=== PATIENT | male | born 1950 | race Caucasian/White ===

== ENCOUNTER 2016-11-21 08:02 | Inpatient (IN) | payer BC, OTHER ==
[~2016-11-21] VITALS: Ht 185.4 cm; Wt 85.2 kg
[2016-11-21] VITALS (20 sets, daily range): BP systolic 96–113; BP diastolic 50–62; PULSE 58–82; RESP 16–47; Ht 185.4 cm; Wt 85.2 kg
[~2016-11-21 08:02] MED LIST: BUPIVACAINE 0.5% (SDV) 30 ML, morphine SULFATE (PF) 8 MG, EPINEPHrine 0.3 MG, KETOROLAC... IRR SCH; CEFAZOLIN 2 GM/50 ML (PMX) 50 ML IVPB SCH; DEXAMETHASONE 1 MG TAB PO SCH; EPHEDrine SULFATE 50 MG/5 ML SYG ONE; GABAPENTIN 300 MG CAP PO SCH; SOD CHLORIDE 0.9% 100 ML, TRANEXAMIC ACID 3,000 MG IRR SCH; TRANEXAMIC ACID 1,000 MG in SOD CHLORIDE 0.9% 100 ML IVPB SCH; traMADol 50 MG TAB PO SCH
--- NOTE | 2016-11-21 08:54 | HPN ---
Date/Time of Note Date/Time of Note DATE: 11/21/16 TIME: 08:54 Interval H&P Admission Note Pt. seen H&P reviewed: No system changes KAROL OLMOS MD Nov 21, 2016 08:54
[2016-11-21] MEDS ORDERED: DOXY100T20 PO (08:59)
[2016-11-21] MEDS ORDERED: THROMBIN 5000 UNIT VIAL ONE (11:50)
[2016-11-21] MEDS ORDERED: CA CHLORIDE 10% 10 ML SYRINGE ONE (11:50)
[2016-11-21] MEDS ORDERED: MIDAZOLAM 1 MG/ML 2 ML INJ ONE (11:57)
[2016-11-21] MEDS ORDERED: morphine SULFATE/PF (10 MG/10 ML) INJ ONE (11:58)
[2016-11-21] MEDS ORDERED: CEFAZOLIN 1 GM INJ ONE (11:58)
[2016-11-21] MEDS ORDERED: METOCLOPRAMIDE 10 MG INJ ONE (11:58)
[2016-11-21] MEDS ORDERED: FENTAnyl 50 MCG/ML VIAL ONE (11:58)
[2016-11-21] MEDS ORDERED: PROPOFOL 20 ML ONE (11:58)
[2016-11-21] MEDS ORDERED: DEXAMETHASONE 4 MG/ML 1 ML INJ ONE (12:21)
[2016-11-21] MEDS ORDERED: SUCCINYLCHOLINE CHLORIDE 100 MG/5 ML SYG IV ONE (12:21)
[2016-11-21] MEDS ORDERED: POLYMYXIN/BACITRACIN 1L IRRIG ONE (12:26)
[2016-11-21] MEDS ORDERED: EPHEDrine SULFATE 50 MG/5 ML SYG IV PRN (13:00)
[2016-11-21] MEDS ORDERED: MEPERIDINE 25 MG INJ IV PRN (13:00)
[2016-11-21] MEDS ORDERED: DIPHENHYDRAMINE 50 MG INJ IV PRN ×2 (13:00→14:30)
[2016-11-21] MEDS ORDERED: METOCLOPRAMIDE 10 MG INJ IV PRN (13:00)
[2016-11-21] MEDS ORDERED: ONDANSETRON 4 MG INJ IV PRN (13:00)
[2016-11-21] MEDS ORDERED: HYDROmorphONE (0.2 MG/ML) 10ML SYG IV PRN ×2 (13:00)
--- NOTE | 2016-11-21 14:20 | PDOCDIS ---
Discharge Instructions DIAGNOSIS Discharge Diagnosis Left Hip primary arthritis CONDITION Patient Condition: Good HOME CARE INSTRUCTIONS: Diet Instructions: Regular ACTIVITY: Activity Restrictions: Slowly Increase Activity Keep Limb Elevated FOLLOW UP/APPOINTMENTS Follow-up Plan Two weeks SCHOOL/WORK RELEASE May return to School/Work with: With Restrictions School/Work Release Comment: No hip extension for six weeks. KAROL OLMOS MD Nov 21, 2016 14:20
--- NOTE | 2016-11-21 14:20 | OPR ---
Date/Time of Note Date/Time of Note DATE: 11/21/16 TIME: 14:14 Operative Report Procedure Date: Nov 21, 2016 Preoperative Diagnosis Left Hip primary arthritis Postoperative Diagnosis Left Hip primary arthritis Operation Performed Left total hip arthroplasty Anesthesia Type: general Procedure Description Surgeon: KAROL OLMOS MD Vp Marketing: Jennifer BRANCH MD Anesthesia: general, spinal Estimated Blood Loss: 200 - 250 ml's Pt Condition Post Procedure: stable Disposition: PACU Procedure Description TAIL PULLER SURGEON: Gulshan Mitchell MD was asked to be present at my request as a result of the complexity associated with this procedure including positioning of the extremity, positioning of the instrumentation and protection of the neurovascular structures. In my opinion, the assistance offered by a surgical device sales representative is insufficient and Dr. Mitchell should be compensated for his time. PROCEDURE IN DETAIL: Following the administration of general endotracheal anesthesia supplemented with a spinal anesthetic, the patient was placed in the supine position. The bilateral lower extremities were then prepped and draped in the usual sterile fashion. A green energy marketing analyst radiograph was obtained for preliminary limb length and femoral size as well as acetabular size. A lateral incision was then made exposing the tensor fascia the fascia was incised the tensor was retracted laterally and the vessels were cauterized. The anterior capsule was then identified. A capsulectomy was then performed and the femoral head was then evaluated severe arthritic changes were noted. A femoral head cut was then made in the appropriate degree of version and inclination. The acetabulum was then exposed capsulectomy and labral ectomy were completed. The central portion was then entered and serially reamed up to the 57 mm size. A Depuy [place] cup which is 58 mm in size with a standard liner was then fit into position with solid fixation. A 35 mm screw was used for additional fixation. Attention was then directed to the femur, the femur was exposed and prepared. The canal was entered and serially reamed up to the 13 mm size. A 13 mm Depuy [place] stem, which was high-offset, was then inserted with solid fixation. A + 5 femoral head, which was ceramic was then inserted. The leg was taken through full range of motion with no evident instability. In addition, radiographs revealed excellent position with reproduction of the limb lengths within a millimeter. The wound was irrigated thoroughly. The wound was then closed in layers and a Prenio for the final cover. This was watertight. Estimated blood loss was procedure was 300 cc. Postoperative radiographs will be obtained in the recovery room. KAROL OLMOS MD Nov 21, 2016 14:19
--- NOTE | 2016-11-21 14:21 | RADRPT ---
PROCEDURE: Intraoperative imaging of the left hip with fluoroscopy. CLINICAL INDICATION: Left hip pain. Intraoperative. TECHNIQUE: 7 images of the left hip were obtained in the operating room with an image intensifier. No radiologist was in attendance. 0.4 minutes of fluoroscopy time was used. COMPARISON: No prior study is available for comparison. FINDINGS: Images demonstrate placement of a total left hip arthroplasty. IMPRESSION: 1. Satisfactory intraoperative imaging of the left hip. RPTAT: QQ .Terrance Head MD, MD Date Time Electronically viewed and signed by .Terrance Head MD, on 11/21/2016 14:21 .R/
[2016-11-21] MEDS ORDERED: ZOLPIDEM 5 MG TAB PO PRN (14:30)
[2016-11-21] MEDS ORDERED: morphine 4 MG/ML VIAL IV PRN (14:30)
[2016-11-21] MEDS ORDERED: BETHANECHOL 25 MG TAB PO PRN (14:30)
[2016-11-21] MEDS ORDERED: TRANEXAMIC ACID 1,000 MG in SOD CHLORIDE 0.9% 100 ML IV ONE (14:30)
[2016-11-21] MEDS ORDERED: OXYCODONE/ACETAMINOPHEN (5/325) TAB PO PRN (14:30)
[2016-11-21] MEDS ORDERED: morphine 2 MG INJ IV PRN (14:30)
[2016-11-21] MEDS ORDERED: MAGNESIUM HYDROXIDE 30ML CUP PO PRN (14:30)
[2016-11-21] MEDS ORDERED: ACETAMINOPHEN 500 MG TAB PO PRN (14:30)
[2016-11-21] MEDS: CEFAZOLIN 1 GM/50 ML (PMX) 50 ML IVPB SCH ×2 (14:46→23:10)
[2016-11-21 14:55] LABS: BASOPHILS % 0.3 % (0.0-2.0); EOSINOPHILS % 0.2 % (0.0-7.0); HEMOGLOBIN 11.5 g/dl (14.0-18.0); LYMPHOCYTES # 0.9 10^3/ul (0.8-2.9); LYMPHOCYTES % 13.2 % (15.0-51.0); MEAN CORPUSCULAR HGB CONC 33.8 g/dl (32.0-37.0); MEAN CORPUSCULAR VOLUME 91.6 fl (82.0-101.0); MEAN PLATELET VOLUME 9.4 fl (7.4-10.4); MONOCYTE # 0.1 10^3/ul (0.3-0.9); MONOCYTES % 1.5 % (0.0-11.0); NEUTROPHILS % 84.3 % (39.0-77.0); PLATELET COUNT 151 10^3/UL (140-415); RED BLOOD COUNT 3.71 10^6/ul (4.70-6.10); RED CELL DISTRIBUTION WIDTH 13.2 % (11.5-14.5); WHITE BLOOD COUNT 6.6 10^3/ul (4.8-10.8)
--- NOTE | 2016-11-21 16:05 | RADRPT ---
PROCEDURE: XR Pelvis. CLINICAL INDICATION: Status post left hip replacement. TECHNIQUE: Single AP view of the pelvis. COMPARISON: No prior studies are available for comparison. FINDINGS: Left hip replacement is identified. The prosthetic components are in appropriate position and align ment. Diffuse osteopenia is identified. The osseous structures appear intact. No destructive bony lesions are observed. Moderate to severe narrowing of the right hip is seen. Degenerative changes are noted in the lower lumbar spine. Frank catheter is identified over the lower pelvis. Soft tis hanna air over the left hip is procedural in nature. IMPRESSION: Left hip replacement. Prosthetic components are in appropriate position and alignment. Osteopenia. Moderate to severe osteoarthritis of the right hip. Degenerative changes in the lower lumbar spine. RPTAT: AA .Harshal Rader MD, Date Time Electronically viewed and signed by .Harshal Rader MD, on 11/21/2016 16:05 .P/
[2016-11-21] MEDS: ONDANSETRON 4 MG INJ IV PRN (18:17)
[2016-11-21] MEDS: LACTATED RINGER'S 1,000 ML IV SCH (18:17)
[2016-11-21] MEDS: DEXAMETHASONE 2 MG TAB PO SCH (18:17)
[2016-11-21] MEDS: SENNA/DOCUSATE NA (8.6MG/50MG) TAB PO SCH (21:00)
[2016-11-21] MEDS: GABAPENTIN 300 MG CAP PO SCH (21:00)
[2016-11-22] MEDS: ONDANSETRON 4 MG INJ IV PRN ×2 (00:35→08:24)
[2016-11-22] MEDS: KETOROLAC 15 MG INJ IV PRN ×2 (00:35→23:17)
[2016-11-22 01:28] VITALS: BP 111/59; RESP 20
[2016-11-22] MEDS: LACTATED RINGER'S 1,000 ML IV SCH ×3 (03:35→21:04)
[2016-11-22 05:42] LABS: BASOPHILS % 0.1 % (0.0-2.0); HEMATOCRIT 30.2 % (42.0-52.0); HEMOGLOBIN 10.4 g/dl (14.0-18.0); LYMPHOCYTES # 0.7 10^3/ul (0.8-2.9); LYMPHOCYTES % 8.6 % (15.0-51.0); MEAN CORPUSCULAR HEMOGLOBIN 31.5 pg (29.0-33.0); MEAN CORPUSCULAR HGB CONC 34.4 g/dl (32.0-37.0); MEAN CORPUSCULAR VOLUME 91.5 fl (82.0-101.0); MEAN PLATELET VOLUME 9.8 fl (7.4-10.4); MONOCYTE # 0.5 10^3/ul (0.3-0.9); MONOCYTES % 6.6 % (0.0-11.0); NEUTROPHILS % 84.5 % (39.0-77.0); PLATELET COUNT 156 10^3/UL (140-415); RED CELL DISTRIBUTION WIDTH 12.7 % (11.5-14.5)
[2016-11-22] MEDS: CEFAZOLIN 1 GM/50 ML (PMX) 50 ML IVPB SCH (06:28)
[2016-11-22] MEDS: DEXAMETHASONE 2 MG TAB PO SCH ×3 (06:28→12:39)
--- NOTE | 2016-11-22 06:40 | PN ---
Date/Time of Note Date/Time of Note DATE: 11/22/16 TIME: 06:39 24 hour Interval Summary Patient is awake and alert and very comfortable this morning. His nausea has gone away. Physical Exam Physical examination: His wound is clean and dry. He is neurologically intact. There are no signs of DVT. Vital Signs Date Time Temp Pulse Resp B/P Pulse Ox O2 Delivery O2 Flow Rate FiO2 11/22/16 01:28 97.8 57 20 111/59 95 11/21/16 18:00 Room Air 11/21/16 15:17 8.0 Intake and Output 11/21/16 11/21/16 11/22/16 15:00 23:00 07:00 Intake Total 1600 ml 50 ml 950 ml Output Total 600 ml Balance 1000 ml 50 ml 950 ml VTE Prophylaxis VTE Prophylaxis Intervention: anti-embolic stocking Lines/Catheters IV Catheter Type: Saline Lock Frank in Place: No Results Result Diagram: 11/22/16 0509 Results 24hrs Laboratory Tests Test 11/21/16 14:14 11/22/16 05:09 White Blood Count 6.6 8.0 # Red Blood Count 3.71 L 3.30 L Hemoglobin 11.5 L 10.4 L Hematocrit 34.0 L 30.2 L Mean Corpuscular Volume 91.6 91.5 Mean Corpuscular Hemoglobin 31.0 31.5 Mean Corpuscular Hemoglobin Concent 33.8 34.4 Red Cell Distribution Width 13.2 12.7 Platelet Count 151 156 Mean Platelet Volume 9.4 9.8 Neutrophils % 84.3 H 84.5 H Lymphocytes % 13.2 L 8.6 L Monocytes % 1.5 6.6 Eosinophils % 0.2 0.0 Basophils % 0.3 0.1 Nucleated Red Blood Cells % 0.0 0.0 Neutrophils # (Manual) 5.6 6.8 Lymphocytes # 0.9 0.7 L Monocytes # 0.1 L 0.5 Eosinophils # 0.0 0.0 Basophils # 0.0 0.0 Nucleated Red Blood Cells # 0.0 0.0 Assessment/Plan Assessment/Plan Assessment: Status post total hip replacement Plan: He will begin physical therapy this morning. He will be discharged once he is cleared by the PT department. Medications Medications Home Meds Reported Medications Doxycycline Hyclate* (Doxycycline Hyclate*) 100 Mg Tablet., 100 MG PO BID, TAB STARTED 11-19-16 FOR 5 DAYS 11/21/16 KAROL OLMOS MD Nov 22, 2016 06:40
--- NOTE | 2016-11-22 06:41 | DS ---
Date/Time of Note Date/Time of Note DATE: 11/22/16 TIME: 06:40 Discharge Summary Admission/Discharge Info Admit Date/Time Nov 21, 2016 at 08:02 Discharge Date/Time Discharge Diagnosis Left Hip primary arthritis Patient Condition: Good Procedures Left total hip replacement Hx of Present Illness Pain and stiffness in the left hip for many years Hospital Course Patient was admitted and underwent an uncomplicated procedure. Postoperative day #1 he was afebrile wound was clean and dry to be discharged followed up in the office in 2 weeks after cleared by physical therapy Home Meds Reported Medications Doxycycline Hyclate* (Doxycycline Hyclate*) 100 Mg Tablet., 100 MG PO BID, TAB STARTED 11-19-16 FOR 5 DAYS 11/21/16 Primary Care Provider Care Physician No Primary Pending Labs Laboratory Tests Test 11/21/16 14:14 11/22/16 05:09 White Blood Count 6.610^3/ul (4.8-10.8) 8.010^3/ul (4.8-10.8) Red Blood Count 3.7110^6/ul (4.70-6.10) 3.3010^6/ul (4.70-6.10) Hemoglobin 11.5g/dl (14.0-18.0) 10.4g/dl (14.0-18.0) Hematocrit 34.0% (42.0-52.0) 30.2% (42.0-52.0) Mean Corpuscular Volume 91.6fl (82.0-101.0) 91.5fl (82.0-101.0) Mean Corpuscular Hemoglobin 31.0pg (29.0-33.0) 31.5pg (29.0-33.0) Mean Corpuscular Hemoglobin Concent 33.8g/dl (32.0-37.0) 34.4g/dl (32.0-37.0) Red Cell Distribution Width 13.2% (11.5-14.5) 12.7% (11.5-14.5) Platelet Count 48568^3/UL (140-415) 23054^3/UL (140-415) Mean Platelet Volume 9.4fl (7.4-10.4) 9.8fl (7.4-10.4) Neutrophils % 84.3% (39.0-77.0) 84.5% (39.0-77.0) Lymphocytes % 13.2% (15.0-51.0) 8.6% (15.0-51.0) Monocytes % 1.5% (0.0-11.0) 6.6% (0.0-11.0) Eosinophils % 0.2% (0.0-7.0) 0.0% (0.0-7.0) Basophils % 0.3% (0.0-2.0) 0.1% (0.0-2.0) Nucleated Red Blood Cells % 0.0/100WBC (0.0-0.0) 0.0/100WBC (0.0-0.0) Neutrophils # (Manual) 5.610^3/ul (1.7-7.5) 6.810^3/ul (1.7-7.5) Lymphocytes # 0.910^3/ul (0.8-2.9) 0.710^3/ul (0.8-2.9) Monocytes # 0.110^3/ul (0.3-0.9) 0.510^3/ul (0.3-0.9) Eosinophils # 0.010^3/ul (0.0-0.5) 0.010^3/ul (0.0-0.5) Basophils # 0.010^3/ul (0.0-0.1) 0.010^3/ul (0.0-0.1) Nucleated Red Blood Cells # 0.010^3/ul (0.0-0.0) 0.010^3/ul (0.0-0.0) KAROL OLMOS MD Nov 22, 2016 06:41
[2016-11-22 07:27] VITALS: BP 99/56; RESP 18
[2016-11-22] MEDS: ASPIRIN 81 MG TAB PO SCH (08:24)
[2016-11-22] MEDS: SENNA/DOCUSATE NA (8.6MG/50MG) TAB PO SCH ×2 (08:24→20:20)
[2016-11-22] MEDS: OXYCODONE/ACETAMINOPHEN (5/325) TAB PO PRN ×3 (08:25→20:19)
--- NOTE | 2016-11-22 09:14 | PN ---
Date/Time of Note Date/Time of Note DATE: 11/22/16 TIME: 09:12 Assessment/Plan VTE Prophylaxis VTE Prophylaxis Intervention: ambulation Lines/Catheters IV Catheter Type (from Nrsg): Saline Lock Urinary Cath still in place: No Subjective 24 Hr Interval Summary Free Text/Dictation Anesthesia Note: A 65 year old male s/p left hip arthroplasty under GA spinal duramorph is doing well, no ain, N/V itching, headache, back is clean . care pe surgery Exam/Review of Systems Vital Signs Vitals Vital Signs Date Time Temp Pulse Resp B/P Pulse Ox O2 Delivery O2 Flow Rate FiO2 11/22/16 07:27 97.9 56 18 99/56 97 11/21/16 18:00 Room Air 11/21/16 15:17 8.0 Intake and Output 11/21/16 11/21/16 11/22/16 15:00 23:00 07:00 Intake Total 1600 ml 50 ml 950 ml Output Total 600 ml Balance 1000 ml 50 ml 950 ml Results Result Diagram: 11/22/16 0509 Results 24 hrs Laboratory Tests Test 11/21/16 14:14 11/22/16 05:09 White Blood Count 6.6 8.0 # Red Blood Count 3.71 L 3.30 L Hemoglobin 11.5 L 10.4 L Hematocrit 34.0 L 30.2 L Mean Corpuscular Volume 91.6 91.5 Mean Corpuscular Hemoglobin 31.0 31.5 Mean Corpuscular Hemoglobin Concent 33.8 34.4 Red Cell Distribution Width 13.2 12.7 Platelet Count 151 156 Mean Platelet Volume 9.4 9.8 Neutrophils % 84.3 H 84.5 H Lymphocytes % 13.2 L 8.6 L Monocytes % 1.5 6.6 Eosinophils % 0.2 0.0 Basophils % 0.3 0.1 Nucleated Red Blood Cells % 0.0 0.0 Neutrophils # (Manual) 5.6 6.8 Lymphocytes # 0.9 0.7 L Monocytes # 0.1 L 0.5 Eosinophils # 0.0 0.0 Basophils # 0.0 0.0 Nucleated Red Blood Cells # 0.0 0.0 Medications Medications Current Medications Senna/Docusate Sodium (Senokot-S) 1 tab BID PO Last administered on 11/22/16t 08 :24; Admin Dose 1 TAB; Start 11/21/16 at 21:00 Simethicone (Mylicon) 80 mg TID PRN PO DISTENSION/GAS/BLOATING; Start 11/21/16 at 14:30 Magnesium Hydroxide (Milk Of Mag) 30 ml BID PRN PO CONSTIPATION; Start at 14:30 Acetaminophen (Tylenol Tab) 1,000 mg Q4H PRN PO TEMP GREATER THAN 100.4F; Start 11/21/16 at 14:30 Dexamethasone (Decadron) 2 mg Q6 PO Last administered on 11/22/16 06:28; Admin Dose 2 MG; Start 11/21/16 at 18:00; Stop 11/22/16 at 12:01 Gabapentin (Neurontin) 300 mg HS PO ; Start 11/21/16 at 21:00 Oxycodone/ Acetaminophen (Percocet (5/ 325)) 1 tab Q4H PRN PO PAIN LEVEL 1-5; Start 11/21/16 at 14:30 Oxycodone/ Acetaminophen (Percocet (5/ 325)) 2 tab Q4H PRN PO PAIN LEVEL 6-10 Last administered on 11/22/16 08:25; Admin Dose 2 TAB; Start 11/21/16 at 14:30 Morphine Sulfate (morphine) 2 mg Q2H PRN IV PAIN LEVEL 1-5 Last administered on 11/21/16 14:55; Admin Dose 2 MG; Start 11/21/16 at 14:30 Morphine Sulfate (morphine) 4 mg Q4H PRN IV PAIN LEVEL 6-10; Start 11/21/16 at 14:30 Ketorolac Tromethamine (Toradol) 15 mg Q6H PRN IV PAIN Last administered on 11/22 00:35; Admin Dose 15 MG; Start 11/21/16 at 14:30; Stop 11/24/16 at 14:29 Ondansetron HCl (Zofran Inj) 4 mg Q6H PRN IV NAUSEA AND/OR VOMITING Last administered on 11/22/16 08:24; Admin Dose 4 MG; Start 11/21/16 at 14:30 Diphenhydramine HCl (Benadryl) 25 mg Q6H PRN IV PRURITUS; Start 11/21/16 at 14: 30 Aspirin 81 mg 81 mg DAILY PO Last administered on 11/22/16 08:24; Admin Dose 81 MG; Start 11/22/16 at 09:00 Lactated Ringer's (Lr) 1,000 ml @ 100 mls/hr Q10H IV Last administered on 03:35; Admin Dose 100 MLS/HR; Start 11/21/16 at 14:12 YANET CALDERON MD Nov 22, 2016 09:14
[2016-11-22 14:15] VITALS: BP 100/55; RESP 18
[2016-11-22 19:20] VITALS: BP 116/59; RESP 16
[2016-11-22] MEDS: GABAPENTIN 300 MG CAP PO SCH (20:19)
[2016-11-23] MEDS: OXYCODONE/ACETAMINOPHEN (5/325) TAB PO PRN ×2 (00:10→10:04)
[2016-11-23 01:52] VITALS: BP 103/55; RESP 16
[2016-11-23 05:20] LABS: BASOPHILS % 0.2 % (0.0-2.0); EOSINOPHILS % 0.2 % (0.0-7.0); HEMATOCRIT 28.8 % (42.0-52.0); HEMOGLOBIN 9.9 g/dl (14.0-18.0); LYMPHOCYTES # 1.2 10^3/ul (0.8-2.9); LYMPHOCYTES % 18.2 % (15.0-51.0); MEAN CORPUSCULAR HEMOGLOBIN 31.8 pg (29.0-33.0); MEAN CORPUSCULAR HGB CONC 34.4 g/dl (32.0-37.0); MEAN CORPUSCULAR VOLUME 92.6 fl (82.0-101.0); MEAN PLATELET VOLUME 10.2 fl (7.4-10.4); MONOCYTE # 0.6 10^3/ul (0.3-0.9); MONOCYTES % 9.6 % (0.0-11.0); NEUTROPHILS % 71.3 % (39.0-77.0); PLATELET COUNT 135 10^3/UL (140-415); RED BLOOD COUNT 3.11 10^6/ul (4.70-6.10); RED CELL DISTRIBUTION WIDTH 13.1 % (11.5-14.5); WHITE BLOOD COUNT 6.6 10^3/ul (4.8-10.8)
[2016-11-23] MEDS: LACTATED RINGER'S 1,000 ML IV SCH (06:12)
[2016-11-23 07:00] VITALS: BP 115/56; RESP 20
[2016-11-23] MEDS: ASPIRIN 81 MG TAB PO SCH (10:05)
[2016-11-23] MEDS: SENNA/DOCUSATE NA (8.6MG/50MG) TAB PO SCH (10:06)
--- NOTE | 2016-11-23 10:32 | PN ---
Date/Time of Note Date/Time of Note DATE: 11/23/16 TIME: 10:30 24 hour Interval Summary Comfortable this am after urinating independently. Doing well with ambulation.. Physical Exam PE: wound clean and dry. no signs DVT Vital Signs Date Time Temp Pulse Resp B/P Pulse Ox O2 Delivery O2 Flow Rate FiO2 11/23/16 07:00 98.0 115 20 115/56 100 11/21/16 18:00 Room Air 11/21/16 15:17 8.0 Intake and Output 11/22/16 11/22/16 11/23/16 15:00 23:00 07:00 Intake Total 400 ml 840 ml 1200 ml Output Total 600 ml 2050 ml Balance 400 ml 240 ml -850 ml VTE Prophylaxis VTE Prophylaxis Intervention: anti-embolic stocking Lines/Catheters IV Catheter Type: Saline Lock Frank in Place: No Results Result Diagram: 11/23/16 0425 Results 24hrs Laboratory Tests Test 11/23/16 04:25 White Blood Count 6.6 Red Blood Count 3.11 L Hemoglobin 9.9 L Hematocrit 28.8 L Mean Corpuscular Volume 92.6 Mean Corpuscular Hemoglobin 31.8 Mean Corpuscular Hemoglobin Concent 34.4 Red Cell Distribution Width 13.1 Platelet Count 135 L Mean Platelet Volume 10.2 Neutrophils % 71.3 Lymphocytes % 18.2 Monocytes % 9.6 Eosinophils % 0.2 Basophils % 0.2 Nucleated Red Blood Cells % 0.0 Neutrophils # (Manual) 4.7 Lymphocytes # 1.2 Monocytes # 0.6 Eosinophils # 0.0 Basophils # 0.0 Nucleated Red Blood Cells # 0.0 Assessment/Plan Chief Complaint/Hosp Course Patient was admitted and underwent an uncomplicated procedure. Postoperative day #1 he was afebrile wound was clean and dry to be discharged followed up in the office in 2 weeks after cleared by physical therapy Problems: Assessment/Plan A/P: Patient doing well and voided. Discharge home this AM. Medications Medications Home Meds Reported Medications Doxycycline Hyclate* (Doxycycline Hyclate*) 100 Mg Tablet., 100 MG PO BID, TAB STARTED 11-19-16 FOR 5 DAYS 11/21/16 KAROL OLMOS MD Nov 23, 2016 10:32
== END 2016-11-23 11:42 | disposition home or self-care (01) | DRG 470 ==
LOC: REC 08:02 → MS1 16:12
PROVIDERS: ADMIT Orthopaedic Surgery; ATTEND Orthopaedic Surgery
PROC: 0SRB04A Replacement of Left Hip Joint with Ceramic on Polyethylene Synthetic Substitute, Uncemented, Open Approach (ICD-10-PCS; principal; 2016-11-21 12:00)
DX: M16.12 Unilateral primary osteoarthritis, left hip (principal); F32.9 Major depressive disorder, single episode, unspecified; F41.9 Anxiety disorder, unspecified
CPT/HCPCS: 72170; 73530; 85025; 86999; 87086; 97116; 97163; 97530; C1713; C1776; J0171; J0690; J0735; J1100; J1885; J2250; J2270; J2274; J2405; J2765; J3010; J3370; J7120; J7999

== ENCOUNTER 2016-12-31 00:02 | Emergency (ER) | payer OTHER ==
[~2016-12-31] VITALS: Ht 177.8 cm; Wt 88.0 kg
[~2016-12-31 00:02] MED LIST changes: -BUPIVACAINE 0.5% (SDV) 30 ML, morphine SULFATE (PF) 8 MG, EPINEPHrine 0.3 MG, KETOROLAC... IRR SCH; -CEFAZOLIN 2 GM/50 ML (PMX) 50 ML IVPB SCH; -DEXAMETHASONE 1 MG TAB PO SCH; +DOXY100T20 PO; -EPHEDrine SULFATE 50 MG/5 ML SYG ONE; -GABAPENTIN 300 MG CAP PO SCH; -SOD CHLORIDE 0.9% 100 ML, TRANEXAMIC ACID 3,000 MG IRR SCH; -TRANEXAMIC ACID 1,000 MG in SOD CHLORIDE 0.9% 100 ML IVPB SCH; -traMADol 50 MG TAB PO SCH
[2016-12-31 00:05] VITALS: Ht 177.8 cm; Wt 88.0 kg
[2016-12-31] MEDS ORDERED: IBUPROFEN 200 MG TAB PO STA (02:59)
[2016-12-31] MEDS ORDERED: IBUP400T22 PO (03:03)
--- NOTE | 2016-12-31 04:17 | RADRPT ---
PROCEDURE: US upper extremity Venous left. CLINICAL INDICATION: Pain TECHNIQUE: Multiple sonographic images of the left upper extremity venous system was obtained util izing grayscale, color-flow, compressive sonography and doppler imaging with augmentation. The imag es were reviewed on a PACS workstation. COMPARISON: None. FINDINGS: There is normal compressibility and flow within the left internal jugular vein, subclavian vein, axi llary vein, brachial, basilic, cephalic, radial and ulnar veins. IMPRESSION: No sonographic evidence for left upper extremity venous thrombosis. RPTAT: HJES .Cecilio Aden MD, MD Date Time Electronically viewed and signed by .Cecilio Aden MD, MD on 12/31/2016 04:17 .S/
--- NOTE | 2016-12-31 04:35 | ERD ---
ER Documentation Chief Complaint Date/Time DATE: 12/31/16 TIME: 04:33 Chief Complaint L arm pain; non radiating started this AM HPI This is a 66-year-old male presenting to the emergency department complaining of left forearm pain that is nonradiating since this morning. Patient rates the pain moderate in severity increased with movement. Patient states that he has had hip replacement 5 weeks prior to being seen. Patient states that he took aspirin for pain ROS All systems reviewed and are negative except as per history of present illness. Medications Home Meds Active Scripts Ibuprofen* (Ibuprofen*) 400 Mg Tablet, 400 MG PO Q6H Y for PAIN, #30 TAB Prov:BATSHEVA OH PA-C 12/31/16 Reported Medications Doxycycline Hyclate* (Doxycycline Hyclate*) 100 Mg Tablet., 100 MG PO BID, TAB STARTED 11-19-16 FOR 5 DAYS 11/21/16 Allergies Allergies: Coded Allergies: No Known Allergy (Unverified , 11/21/16) allergy /ht /wt per Renée at Dr. Burdick's office 11/20/16 1649 PMhx/Soc History of Surgery: Yes (INGUINAL HERNIA REPAIR,SEPTORHINOPLASTSY,MARCE KNEE SURGERY, left total hip) Anesthesia Reaction: Yes (URINARY RETENTION POST OP) Hx Neurological Disorder: No Hx Respiratory Disorders: No Hx Cardiac Disorders: No Hx Psychiatric Problems: Yes (DEPRESSION,ANXIETY) Hx Miscellaneous Medical Probl: Yes (See EMR for details. ) Hx Alcohol Use: Yes (quit 15 years ago) Hx Substance Use: No Hx Tobacco Use: Yes (QUIT 35 YRS AGO) Smoking Status: Former smoker Physical Exam Vitals Vital Signs Date Time Temp Pulse Resp B/P Pulse Ox O2 Delivery O2 Flow Rate FiO2 12/31/16 00:05 96.0 72 20 137/76 99 Physical Exam Const: Well-nourished no acute distress Head: Atraumatic Eyes: Normal Conjunctiva ENT: Normal External Ears, Nose and Mouth. Neck: Full range of motion..~ No meningismus. Resp: Clear to auscultation bilaterally Cardio: Regular rate and rhythm, no murmurs Abd: Soft, non tender, non distended. Normal bowel sounds Skin: No petechiae or rashes Back: No midline or flank tenderness Ext: Palpation over the left lateral forearm, full range of motion. no swelling noted. +2 radial pulses Neur: Awake and alert Psych: Normal Mood and Affect Results 24 hrs Current Medications Medications (Trade) Dose Ordered Sig/Dwight Route PRN Reason Start Time Stop Time Status Last Admin Dose Admin Ibuprofen (Motrin) 400 mg ONCE STAT PO 12/31/16 02:59 12/31/16 03:00 DC 12/31/16 03:43 Procedures/MDM 66 year old male presents to the ED setting of left arm pain likely due to a strain. There was no evidence of DVT, fracture, dislocation. Low suspicion for ACS. Venous ultrasound was done of the left arm and it was unremarkable for DVT grade patient is neurovascular intact to be discharged home to with prescription of ibuprofen Departure Diagnosis: Primary Impression: Left arm pain Condition: Stable Patient Instructions: Muscle Strain, Extremity Additional Instructions: FOLLOW UP WITH YOUR PRIMARY CARE PHYSICIAN TOMORROW.Return to this facility if you are not improving as expected. Take all medicines as directed. Return to this facility if you are not improving as expected. BATSHEVA OH PA-C Dec 31, 2016 04:35
== END 2016-12-31 05:00 | disposition home or self-care (01) ==
LOC: FTE 00:02
DX: M79.602 Pain in left arm (principal); Z87.891 Personal history of nicotine dependence
CPT/HCPCS: 93971; 99283

== ENCOUNTER 2018-05-28 08:30 | Inpatient (IN) | payer MEDICARE, OTHER ==
[~2018-05-28] VITALS: Ht 185.4 cm; Wt 88.4 kg
[~2018-05-28 08:30] MED LIST changes: +IBUP-1541 PO
[2018-07-20 16:30] VITALS: BMI 26.1
[2018-07-23] VITALS (28 sets, daily range): BP systolic 87–115; BP diastolic 47–62; PULSE 52–80; RESP 17–22; Ht 185.4 cm; Wt 88.4 kg
--- NOTE | 2018-07-23 05:23 | HPN ---
Date/Time of Note Date/Time of Note DATE: 07/23/18 TIME: 05:23 Interval H&P Admission Note Pt. seen H&P reviewed: No system changes KAROL OLMOS MD July 23, 2018 05:23
--- NOTE | 2018-07-23 05:26 | OPR ---
Date/Time of Note Date/Time of Note DATE: 07/23/18 TIME: 05:24 Operative Report Procedure Date: July 23, 2018 Preoperative Diagnosis Right hip primary arthritis Postoperative Diagnosis Right hip primary arthritis Operation/Procedure Performed 1. Right total hip arthroplasty 2. Injection of PRP solution Surgeon see signature line Palliative Senior Np Byron Lau PA-C Anesthesia Type: general Estimated Blood Loss: 200 - 250 ml's Transfusion none Specimen None Grafts/Implants See operative note Complications none Pt Condition Post Procedure: stable Disposition: PACU Procedure Description JALOUSIE INSTALLER SURGEON: Byron Lau PA-C was integral to the positioning and assistance necessary in the exposure of the hip joint as well as protection of the neurovascular structures. In my opinion at the assistance offered by a director medical surgical is insufficient and Ivettetristan should be compensated for his time. PROCEDURE IN DETAIL: Following the administration of general endotracheal anesthesia supplemented with a spinal anesthetic, the patient was placed in the supine position. The antecubital fossa on the right was prepped and 60 cc of blood were aspirated. Under sterile conditions, the blood was passed off to the medical collections representative from the company who prepared the PRP solution. The right lower extremity was then prepped and draped in the usual sterile fashion. A insurance sales producer radiograph was obtained for preliminary limb length and femoral size as well as acetabular size. A lateral incision was then made exposing the tensor fascia the fascia was incised the tensor was retracted laterally and the vessels were cauterized. The anterior capsule was then identified and prepared. A capsulectomy was then performed and the femoral head was then evaluated. Severe arthritic changes were noted. A femoral head cut was then made in the appropriate degree of version and inclination. Following dislocation, severe arthritic changes were noted with very certain severe cystic changes in the femoral head. The acetabulum was then exposed and a capsulectomy and labrectomy were completed. The central portion was then entered and serially reamed up to the 47 mm size. A Depuy Liscomb cup which was 48 mm, with a standard liner was then fit into position with solid fixation. A 30 mm screw was used for additional fixation. Attention was then directed to the femur, the femur was exposed and prepared. The canal was entered and serially reamed up to the size 6, hi offset. The femoral canal was then thoroughly irrigated and the PRP solution was then instilled into the femoral canal. A size 6 Depuy Actis stem with a high offset was then inserted with solid fixation. A 28 mm, +1.5 mm femoral head, which was ceramic was then inserted. The leg was taken through full range of motion with no evident instability. In addition, radiographs revealed excellent position with reproduction of the limb lengths within a millimeter. The wound was irrigated thoroughly. The wound was then closed in layers and a Prenio for the final cover. This was watertight. Estimated blood loss was procedure was 250 cc. Postoperative radiographs will be obtained in the recovery room. Complications none Pt Condition Post Procedure: stable Disposition: PACU KAROL OLMOS MD July 23, 2018 05:25
[2018-07-23] MEDS ORDERED: DEXAMETHASONE 1 MG TAB PO SCH (06:00)
[2018-07-23] MEDS ORDERED: SOD CHLORIDE 0.9% 100 ML, TRANEXAMIC ACID 3,000 MG IRR SCH ×2 (06:00)
[2018-07-23] MEDS ORDERED: CEFAZOLIN 2 GM/50 ML (PMX) 50 ML IVPB SCH (06:00)
[2018-07-23] MEDS ORDERED: GABAPENTIN 300 MG CAP PO SCH ×2 (06:00→21:00)
[2018-07-23] MEDS ORDERED: BUPIVACAINE 0.5% (SDV) 30 ML, morphine SULFATE (PF) 8 MG, EPINEPHrine 0.3 MG, KETOROLAC... IRR SCH ×7 (06:00)
[2018-07-23] MEDS ORDERED: TRANEXAMIC ACID 1GM/100ML(PMX) 100 ML IVPB SCH (06:00)
--- NOTE | 2018-07-23 06:41 | PREAC ---
Date/Time of Note Date/Time of Note DATE: 07/23/18 TIME: 06:39 Anesthesia Eval and Record Evaluation Time Pre-Procedure Interview DATE: 07/23/18 TIME: 06:39 Age 67 Sex male NPO: 8 hrs Preoperative diagnosis right hip primary OA Planned procedure Right hip replacement Past Medical History Past Medical History: None Surgery & Anesthesia Issues No known issue (urinary retention) Meds Anticoagulation: No Beta Jose within 24 hr: No Reason Beta Jose not given: Pt. not on B-Jose Discontinued Reported Medications Doxycycline Hyclate* (Doxycycline Hyclate*) 100 Mg Tablet.dr, 100 MG PO BID, TAB STARTED 11-19-16 FOR 5 DAYS 11/21/16 Discontinued Scripts Ibuprofen* (Ibuprofen*) 400 Mg Tablet, 400 MG PO Q6H PRN for PAIN, #30 TAB Prov:BATSHEVA OH PA-C 12/31/16 Current Medications Cefazolin Sodium/ Dextrose 50 ml @ 100 mls/hr PRE-OP IVPB ; Start 07/23/18 at 06:00; Stop 07/23/18 at 12:00 Tranexamic Acid 100 ml @ 200 mls/hr Pre-op IVPB ; Start 07/23/18 at 06:00; Stop 07/23/18 at 12:00 Sodium Chloride/ Tranexamic Acid INTRA-OP IRR ; Start 07/23/18 at 06:00; Stop 07/23/18 at 12:00 Bupivacaine HCl/ Morphine Sulfate/ Epinephrine/ Ketorolac Tromethamine/ Clonidine/Sodium Chloride/ Vancomycin HCl INTRA-OP IRR ; Start 07/23/18 at 06:00; Stop 07/23/18 at 12:00 Dexamethasone (Decadron) 2 mg PREOP PO Last administered on 07/23/18at 06:02; Admin Dose 2 MG; Start 07/23/18 at 06:00; Stop 07/23/18 at 12:00 Gabapentin (Neurontin) 300 mg ONCE PO Last administered on 07/23/18at 06:02; Admin Dose 300 MG; Start 07/23/18 at 06:00; Stop 07/23/18 at 12:00 Lactated Ringer's 1,000 ml @ 30 mls/hr Q24H IV ; Start 07/23/18 at 07:00; Status UNV Meds reviewed: Yes Allergies Coded Allergies: No Known Allergy (Unverified , 07/23/18) allergy /ht /wt per Renée at Dr. Burdick's office 11/20/16 1649 Allergies Reviewed: Yes Labs/Studies Labs Reviewed: Reviewed by anesthesiologist test: N/A Studies: ECG (sr), CXR (nl) Pre-procedure Exam Last vitals Vital Signs Date Temp Pulse Resp B/P (MAP) Pulse Ox O2 O2 Flow FiO2 Time Delivery Rate 07/23/18 97.6 52 18 115/57 96 Room Air 06:19 (76) Airway: Adequate mouth opening Mallampati: Mallampati I Teeth: Abnormal (denture) Lung: Normal Heart: Normal ASA Physical Status ASA physical status: 1 Emergency: None Planned Anesthetic General/MAC: ETT, LMA Neuraxial: Spinal Planned Pain Management Sub-arachniod narcotics Pre-operative Attestations Prior to commencing anesthesia and surgery, the patient was re-evaluated, there was verification of: *The patient's identity *The results of appropriate recent lab work and preoperative vital signs *The above evaluation not changing prior to induction *Anesthetic plan, risk benefits, alternative and complications discussed with patient/family; questions answered; patient/family understands, accepts and wishes to proceed. YANET CALDERON MD July 23, 2018 06:41
[2018-07-23] MEDS ORDERED: POLYMYXIN/BACITRACIN 1L IRRIG ONE (06:52)
[2018-07-23] MEDS ORDERED: TRANEXAMIC ACID 1GM/100ML(PMX) 100 ML ONE (06:52)
[2018-07-23] MEDS ORDERED: THROMBIN (BOVINE) 5,000 UNIT VIAL TP ONE (06:52)
[2018-07-23] MEDS ORDERED: CA CHLORIDE (GM) 10% 10 ML INJ ONE (06:52)
[2018-07-23] MEDS ORDERED: ONDANSETRON 4 MG INJ ONE (06:53)
[2018-07-23] MEDS ORDERED: MIDAZOLAM 1 MG/ML 2 ML INJ ONE (06:53)
[2018-07-23] MEDS ORDERED: morphine SULFATE/PF (10 MG/10 ML) INJ ONE (06:53)
[2018-07-23] MEDS ORDERED: METOCLOPRAMIDE 10 MG INJ ONE (06:54)
[2018-07-23] MEDS ORDERED: EPHEDrine 25 MG/5 ML SYG ONE (07:00)
[2018-07-23] MEDS ORDERED: CEFAZOLIN 1 GM INJ ONE (07:00)
[2018-07-23] MEDS ORDERED: LACTATED RINGER'S 1,000 ML IV ONE (07:00)
[2018-07-23] MEDS ORDERED: DIPHENHYDRAMINE 50 MG INJ IV PRN ×2 (09:00→09:30)
[2018-07-23] MEDS ORDERED: ONDANSETRON 4 MG INJ IV PRN ×2 (09:00→09:30)
[2018-07-23] MEDS ORDERED: MAGNESIUM HYDROXIDE 30ML CUP PO PRN (09:00)
[2018-07-23] MEDS ORDERED: oxyCODONE 5 MG TAB PO PRN ×2 (09:00)
[2018-07-23] MEDS ORDERED: ACETAMINOPHEN 1000MG/100ML IV 100 ML IVPB SCH (09:00)
[2018-07-23] MEDS ORDERED: NACL 0.9% 3 ML SYG IV SCH (09:00)
[2018-07-23] MEDS ORDERED: HYDROmorphONE 1 MG/ML SYG IV PRN (09:00)
[2018-07-23] MEDS ORDERED: HYDROmorphONE 1 MG/5 ML IV SYRINGE IV PRN ×3 (09:30)
[2018-07-23] MEDS ORDERED: KETOROLAC 30 MG INJ IV PRN (09:30)
[2018-07-23] MEDS ORDERED: MEPERIDINE 25 MG INJ IV PRN (09:30)
[2018-07-23] MEDS ORDERED: FENTAnyl 50 MCG/ML VIAL IV PRN ×3 (09:30)
[2018-07-23] MEDS ORDERED: CEFAZOLIN 1 GM/50 ML (PMX) 50 ML IVPB ONE (10:13)
[2018-07-23] MEDS ORDERED: CEFAZOLIN 1 GM/50 ML (PMX) 50 ML IVPB SCH (10:30)
[2018-07-23] MEDS: LACTATED RINGER'S 1,000 ML IV SCH ×2 (11:12→20:52)
[2018-07-23] MEDS: SENNA/DOCUSATE NA (8.6MG/50MG) TAB PO SCH ×2 (12:48→20:51)
[2018-07-23] MEDS: DEXAMETHASONE 2 MG TAB PO SCH ×3 (12:48→23:24)
[2018-07-23] MEDS: CEFAZOLIN 1 GM/50 ML (PMX) 50 ML IVPB SCH (18:37)
[2018-07-23] MEDS: ACETAMINOPHEN 1000MG/100ML IV 100 ML IVPB SCH (20:52)
[2018-07-23] MEDS ORDERED: ZOLPIDEM 5 MG TAB PO PRN (21:00)
[2018-07-24] VITALS: BP 103/58; PULSE 65; RESP 20
[2018-07-24] MEDS: CEFAZOLIN 1 GM/50 ML (PMX) 50 ML IVPB SCH ×2 (01:54→10:36)
[2018-07-24] MEDS: LACTATED RINGER'S 1,000 ML IV SCH (04:48)
--- NOTE | 2018-07-24 05:54 | PN ---
Date/Time of Note Date/Time of Note DATE: 07/24/18 TIME: 05:54 Subjective Awake and alert with no complaints this morning Objective Vitals Vital Signs Date Temp Pulse Resp B/P (MAP) Pulse Ox O2 O2 Flow FiO2 Time Delivery Rate 07/24/18 98.0 65 20 103/58 99 Room Air 00:00 (73) 07/23/18 8.0 09:00 Intake and Output 07/23/18 07/23/18 07/24/18 1515:00 23:00 07:00 IntakeIntake Total 1500 ml 1050 ml 100 ml OutputOutput Total 550 ml 1025 ml BalanceBalance 950 ml 25 ml 100 ml Wound is clean and dry. Neurologically intact. No signs of DVT. Results Result Diagram: 07/24/18 0431 Medications Medications Current Medications Lactated Ringer's 1,000 ml @ 30 mls/hr Q24H ONCE IV ; Start 07/23/18 at 07:00; Stop 07/24/18 at 06:59 Lactated Ringer's 1,000 ml @ 100 mls/hr Q10H IV Last administered on 07/23/18at 20:52; Admin Dose 100 MLS/HR; Start 07/23/18 at 08:48 Cefazolin Sodium 50 ml @ 100 mls/hr Q8H IVPB Last administered on 07/24/18at 01:54; Admin Dose 100 MLS/HR; Start 07/23/18 at 18:00; Stop 07/24/18 at 10:29 Senna/Docusate Sodium (Senokot-S) 1 tab BID PO Last administered on 07/23/18at 20:51; Admin Dose 1 TAB; Start 07/23/18 at 09:00 Simethicone (Mylicon) 80 mg TID PRN PO .GAS; Start 07/23/18 at 09:00 Magnesium Hydroxide (Milk Of Mag) 30 ml BID PRN PO .CONSTIPATION; Start 07/23/18 at 09:00 Magnesium Hydroxide (Milk Of Mag) 30 ml HS PO ; Start 07/25/18 at 21:00 Dexamethasone (Decadron) 2 mg Q6 PO Last administered on 07/23/18at 23:24; Admin Dose 2 MG; Start 07/23/18 at 12:00; Stop 07/24/18 at 06:01 Gabapentin (Neurontin) 300 mg HS PO Last administered on 07/23/18at 20:51; Admin Dose 300 MG; Start 07/23/18 at 21:00 Oxycodone HCl (Roxicodone) 15 mg Q4H PRN PO .PAIN; Start 07/23/18 at 09:00 Oxycodone HCl (Roxicodone) 10 mg Q4H PRN PO .PAIN; Start 07/23/18 at 09:00 Oxycodone HCl (Roxicodone) 5 mg Q4H PRN PO .PAIN; Start 07/23/18 at 09:00 Hydromorphone HCl (Dilaudid) 1 mg Q4H PRN IV .BREAKTHROUGH PAIN; Start 07/23/18 at 09:00 Ondansetron HCl (Zofran Inj) 4 mg Q6H PRN IV NAUSEA/VOMITING Last administered on 07/23/18at 16:00; Admin Dose 4 MG; Start 07/23/18 at 09:00 Diphenhydramine HCl (Benadryl) 25 mg Q6H PRN IV .PRURITUS; Start 07/23/18 at 09: 00 Zolpidem Tartrate (Ambien) 10 mg HS PRN PO .INSOMNIA; Start 07/23/18 at 21:00 IV Flush (NS 3 ml) 3 ml per protocol IV ; Start 07/23/18 at 09:00 Aspirin (Ecotrin) 325 mg DAILY PO ; Start 07/24/18 at 09:00 VTE Prophylaxis Risk score (from Ns)>0 risk: 7 SCD applied (from Ns): Yes Lines/Catheters IV Catheter Type: Saline Lock Frank in Place: No Assessment/Plan Assessment/Plan Assessment: Status post total hip replacement Plan: He will begin PT this morning and be discharged after being cleared KAROL OLMOS MD July 24, 2018 05:54
--- NOTE | 2018-07-24 05:55 | PDOCDIS ---
Discharge Instructions DIAGNOSIS Discharge Diagnosis Hip arthritis CONDITION [id number] Patient Condition: [id number] Good HOME CARE INSTRUCTIONS: Truep8Ds Diet Instructions: Ovaek8o Regular ACTIVITY: [id number] Activity Restrictions: [id number] Slowly Increase Activity Keep Limb Elevated [id number] Bathing Restrictions: Siufh3i Shower FOLLOW UP/APPOINTMENTS Follow-up Plan 2 weeks in the office SCHOOL/WORK RELEASE May return to School/Work with: With Restrictions School/Work Release Comment: No hip extension for 3 months KAROL OLMOS MD July 24, 2018 05:55
--- NOTE | 2018-07-24 05:56 | DS ---
Date/Time of Note Date/Time of Note DATE: 07/24/18 TIME: 05:55 Discharge Summary Admission/Discharge Info Admit Date/Time July 23, 2018 at 05:23 Discharge Date/Time July 24, 2018 Discharge Diagnosis Hip arthritis Patient Condition: Good Hospital Course Admitted and underwent uncomplicated procedure. Postop day 1 he was stable afebrile ambulatory to be discharged and followed up in 2 weeks Home Meds Discontinued Reported Medications Doxycycline Hyclate* (Doxycycline Hyclate*) 100 Mg Tablet.dr, 100 MG PO BID, TAB STARTED 11-19-16 FOR 5 DAYS 11/21/16 Discontinued Scripts Ibuprofen* (Ibuprofen*) 400 Mg Tablet, 400 MG PO Q6H PRN for PAIN, #30 TAB Prov:BATSHEVA OH PA-C 12/31/16 Follow-up Plan 2 weeks in the office Primary Care Provider Care Physician No Primary Pending Labs Laboratory Tests Test 07/23/18 13:56 07/24/18 04:31 White Blood Count 6.7 10^3/ul (4.8-10.8) 8.1 10^3/ul (4.8-10.8) Red Blood Count 3.86 10^6/ul (4.70-6.10) 3.75 10^6/ul (4.70-6.10) Hemoglobin 11.8 g/dl (14.0-18.0) 11.6 g/dl (14.0-18.0) Hematocrit 35.9 % (42.0-52.0) 34.4 % (42.0-52.0) Mean Corpuscular Volume 93.0 fl (82.0-101.0) 91.7 fl (82.0-101.0) Mean Corpuscular 30.6 pg (29.0-33.0) 30.9 pg (29.0-33.0) Hemoglobin Mean Corpuscular 32.9 g/dl (32.0-37.0) 33.7 g/dl (32.0-37.0) Hemoglobin Concent Red Cell Distribution 12.8 % (11.5-14.5) 12.5 % (11.5-14.5) Width Platelet Count 157 10^3/UL (140-415) 158 10^3/UL (140-415) Mean Platelet Volume 10.1 fl (7.4-10.4) 10.3 fl (7.4-10.4) Immature Granulocytes % 0.600 % (0.001-0.429) 0.200 % (0.001-0.429) Neutrophils % 83.7 % (39.0-77.0) 83.2 % (39.0-77.0) Lymphocytes % 8.2 % (15.0-51.0) 7.4 % (15.0-51.0) Monocytes % 7.2 % (0.0-11.0) 9.1 % (0.0-11.0) Eosinophils % 0.0 % (0.0-7.0) 0.0 % (0.0-7.0) Basophils % 0.3 % (0.0-2.0) 0.1 % (0.0-2.0) Nucleated Red Blood Cells 0.0 /100WBC (0.0-0.0) 0.0 /100WBC (0.0-0.0) % Immature Granulocytes # 0.040 10^3/ul (0.0-0.031) 0.020 10^3/ul (0.0-0.031) Neutrophils # 5.6 10^3/ul (1.6-7.5) 6.7 10^3/ul (1.6-7.5) Lymphocytes # 0.6 10^3/ul (0.8-2.9) 0.6 10^3/ul (0.8-2.9) Monocytes # 0.5 10^3/ul (0.3-0.9) 0.7 10^3/ul (0.3-0.9) Eosinophils # 0.0 10^3/ul (0.0-0.5) 0.0 10^3/ul (0.0-0.5) Basophils # 0.0 10^3/ul (0.0-0.1) 0.0 10^3/ul (0.0-0.1) Nucleated Red Blood Cells 0.0 10^3/ul (0.0-0.0) 0.0 10^3/ul (0.0-0.0) KAROL CRAIN MD July 24, 2018 05:56
[2018-07-24 06:20] VITALS: BP 111/62; RESP 19
[2018-07-24] MEDS: DEXAMETHASONE 2 MG TAB PO SCH (06:40)
[2018-07-24] MEDS: ACETAMINOPHEN 1000MG/100ML IV 100 ML IVPB SCH (06:43)
[2018-07-24] MEDS ORDERED: ASPIRIN (EC) 325 MG TAB PO SCH (09:00)
[2018-07-24] MEDS: SENNA/DOCUSATE NA (8.6MG/50MG) TAB PO SCH (09:11)
--- NOTE | 2018-07-24 11:07 | PAC ---
Date/Time of Note Date/Time of Note DATE: 07/24/18 TIME: 11:07 Post-Anesthesia Notes Post-Anesthesia Note Last documented vital signs Vital Signs Date Temp Pulse Resp B/P (MAP) Pulse Ox O2 O2 Flow FiO2 Time Delivery Rate 07/24/18 98.0 65 20 103/58 99 Room Air 00:00 (73) 07/23/18 8.0 09:00 Activity: WNL Respiratory function: WNL Cardiovascular function: WNL Mental status: Baseline Pain reasonably controlled: Yes Hydration appropriate: Yes Nausea/Vomiting absent: No YANET CALDERON MD July 24, 2018 11:07
--- NOTE | 2018-07-24 11:07 | OPPN ---
Date/Time of Note Date/Time of Note DATE: 07/24/18 TIME: 11:05 Anesthesia Follow up Anesthesia Follow up Last documented vital signs Vital Signs Date Temp Pulse Resp B/P (MAP) Pulse Ox O2 O2 Flow FiO2 Time Delivery Rate 07/24/18 98.0 65 20 103/58 99 Room Air 00:00 (73) 07/23/18 8.0 09:00 Respiratory function: WNL Cardiovascular function: WNL Comments A 67 year amle s/p GA . spnal with duramorph for post op pain is doing fine POD#1 .No pain, N/V,itching, headache, neural deficit, SOB. care oper surgery YANET CALDERON MD July 24, 2018 11:07
[2018-07-24] MEDS: oxyCODONE 5 MG TAB PO PRN ×2 (11:22→17:02)
[2018-07-24 15:20] VITALS: BP 119/58; PULSE 68; RESP 18
[2018-07-25] MEDS ORDERED: MAGNESIUM HYDROXIDE 30ML CUP PO SCH (21:00)
== END 2018-07-24 17:35 | disposition home or self-care (01) | DRG 470 ==
LOC: REC 07-23 05:23 → MS1 07-23 10:09
PROVIDERS: ADMIT Orthopaedic Surgery; ATTEND Orthopaedic Surgery
PROC: 0SR904A Replacement of Right Hip Joint with Ceramic on Polyethylene Synthetic Substitute, Uncemented, Open Approach (ICD-10-PCS; principal; 2018-07-23 07:00)
DX: M16.11 Unilateral primary osteoarthritis, right hip (principal)
CPT/HCPCS: 72170; 73530; 85025; 86999; 87086; 88304; 88311; 97116; 97161; C1713; C1776; J0131; J0171; J0690; J0735; J1885; J2250; J2274; J2405; J2765; J3370; J7120